=== PATIENT | female | born 1965 | race Caucasian/White ===

== ENCOUNTER 2024-12-04 08:25 | Observation (INO) ==
[2024-12-04] MEDS: KETAMINE HCL 10MG/ML SYR IV STA (08:41)
[2024-12-04 08:57] LABS: Basophils # (auto) 0.03 K/uL (0.00-0.20); Basophils % (auto) 0.4 %; Eosinophils % (auto) 1.4 %; Hemoglobin 12.3 g/dl (12.0-16.0); Immature Granulocytes # (auto) 0.02 K/uL (0.01-0.20); Immature Granulocytes % (auto) 0.3 %; Lymphocytes # (auto) 2.46 K/uL (1.20-3.40); Lymphocytes % (auto) 35.4 %; Mean Corpuscular Hemoglobin 29.7 pg (25.0-34.0); Mean Corpuscular Hgb Conc 33.2 g/dL (32.0-36.0); Mean Corpuscular Volume 89.4 fL (80.0-100.0); Mean Platelet Volume 9.9 fL (9.4-12.4); Monocytes # (auto) 0.66 K/uL (0.11-0.59); Monocytes % (auto) 9.5 %; Neutrophils # (auto) 3.67 K/uL (1.40-6.50); Platelet Count 347 K/uL (130-400); RDW Coefficient of Variation 13.6 % (11.5-14.5); RDW Standard Deviation 44.4 fL (36.4-46.3); Red Blood Count 4.14 M/uL (4.20-5.40); White Blood Count 6.94 K/ul (4.8-10.8)
[2024-12-04] MEDS: KETAMINE HCL INJ 50 MG/ML 10 ML VIAL ONE (08:57)
--- NOTE | 2024-12-04 09:06 | XRay Report ---
XR ankle RT min 3V routine CLINICAL HISTORY: fall, frx COMPARISON: None FINDINGS: Splint is present. There are acute mildly displaced fractures at the distal fibula and the medial malleolus of the distal tibia and at the posterior malleolus. There is minimal lateral sublux ation of the tibiotalar joint. IMPRESSION: Mildly displaced trimalleolar fracture. ACT 112: Negative or not required by law. Electronically signed by: Chadd Oscar M.D. 12/04/2024 9:04 AM
--- NOTE | 2024-12-04 09:06 | XRay Report ---
XR knee RT 1 or 2V routine CLINICAL HISTORY: fall COMPARISON: None FINDINGS: No fracture or dislocation. No significant degenerative change. IMPRESSION: No fracture seen. ACT 112: Negative or not required by law. Electronically signed by: Chadd Oscar M.D. 12/04/2024 9:05 AM
[2024-12-04 09:14] LABS: Albumin Globulin Ratio 1.2 (0.9-2); Albumin Level 4.1 gm/dl (3.4-5.0); BUN Creatinine Ratio 20.5 (10-20); Bilirubin,Total 0.5 mg/dl (0.2-1.0); Globulin 3.3 gm/dl (2.5-4.0); Total Protein 7.4 gm/dl (6.0-8.3)
[2024-12-04] MEDS: DIPHTHER/TETAN/PERTUS Vaccine (Tdap, Adol/Adult) 0.5mL IM ONE (09:18)
[2024-12-04] MEDS: ceFAZolin 2000MG 2,000 MG/15 ML SYR IV STA (09:22)
[2024-12-04 09:23] LABS: INR 0.9 (0.9-1.1); Prothrombin Time 10.3 Seconds (9.0-12.0)
--- NOTE | 2024-12-04 09:39 | Emergency Department Note ---
Impression & Plan Closed right ankle fracture, Fall ED Provider Note Provider: Estevan Chapman MD CHIEF COMPLAINT: Fall, right ankle pain HISTORY OF PRESENT ILLNESS: Patient is a 59-year-old female history of anxiety presenting here today the ambulance after slip and fall at work. Evidently slipped on some ice in the parking lot at work and fell today injuring her right ankle. Received 100 fentanyl prior to arrival. Significant pain here but able to feel and move her toes. Denies significant pain in the head neck or back. Denies loss of conscious. No chest pain or shortness of breath reported. No abdominal pain or nausea. Denies history of injury to this foot or leg before. No other injuries noted. PAST MEDICAL HISTORY: As noted above MEDICATIONS: Reviewed home medications SOCIAL HISTORY: PHYSICAL EXAM: GENERAL: alert and oriented in no acute distress on stretcher Head: normocephalic and atraumatic EYES: No injection, discharge or icterus. EOMI. NECK: Trachea midline. Supple with good range of motion. ENT: Mucous membranes pink and moist. LUNGS: Airway patent. No retractions. Breath sounds clear with good air entry bilaterally. HEART: Regular rate and rhythm. No chest wall tenderness ABDOMEN: Soft and non-tender, without guarding or rebound. Stable pelvis. SKIN: Acyanotic, warm, dry, without rashes EXTREMITIES: Without swelling, tenderness or deformity except for the right lower extremity which is surrounded and blanket towels and pillow. Removing this there is obvious posterior and lateral dislocation of the right foot to the lower leg. There is some skin tenting noted with an abrasion over the anterior ankle region but no open laceration or protruding bone. NEUROLOGICAL: No aphasia. No facial droop or slurred speech. Normal strength and tone in the extremities other than limitations of the right lower leg and ankle/foot secondary to pain and splint. Sensation to gross touch normal including intact sensation of the right toes. CONTINUOUS CARDIAC MONITORING: was ordered and showed a heart rate of 60s-80s bpm in NSR Patient's laboratory studies and imaging reviewed. Differential includes Fracture, dislocation, contusion, intra-abdominal, pneumothorax, intrathoracic, intracranial, neurologic, compartment syndrome, rhabdomyolysis, as well as other pathologies. IMPRESSION/MEDICAL DECISION MAKING: Patient on arrival with an obvious fracture dislocation of the right ankle. ATLS survey primary and secondary completed. Some tenting skin and a small abrasion present. Cleaned with chlorhexidine. Tetanus updated. Given some ketamine to affect quick emergent closed reduction given the concern with the joint and tenting skin. Neurovascular intact prior. Patient was agreeable with this verbal consent. Performed as below without any significant complications. CO2 and close cardiac monitoring. Patient's right lower extremity was splinted and x-ray obtained. Did reach out to orthopedics on-call. She is more like an abrasion than true open fracture but did empirically cover with a dose of Ancef once confirming her allergy profile with her. Patient without evidence of other significant trauma. Awake alert without head pain or neurological deficit. Doubt a head injury/intracranial hemorrhage, cervical spine injury. No injury to the other extremities noted. Neurovascular intact to the right foot afterwards. Discussed with Dr. Glaser of orthopedics. Sent electronically a picture of the area prior to reduction showing the abrasion as well as a as well a picture of the post reduction x-ray. Ankle mortise still just a little bit malaligned but much improved. Again I do not believe this is an open fracture. As it be covered with a splint we will put on a course of antibiotics however. Discussed with the patient. Her pain is improved some but now with movement is worse. She does not feel she will be able go home on crutches and function at all. Has had some IV morphine in addition to prior pain medicine. Given her ambulatory dysfunction and concerns, discussed with the hospitalist for further care here. DIAGNOSIS: Fall, right trimalleolar fracture DISPOSITION: Evaluated by the hospitalist for further care Given her poor pain control and ambulatory dysfunction. Patient was agreeable with this plan. ED procedure: Closed reduction right ankle Indication: Right ankle trimalleolar fracture dislocation Performed by self with the patient's verbal consent. Given some ketamine for pain and anxiolysis. Close cardiac and end-tidal monitoring with nursing at bedside. Performed quick close reduction with evidence of abrasion and tenting of skin in hopes to provide prevent joint damage or lower risk of infection. Patient did well with this and simple traction countertraction affected good reduction. Splint placed. Neurovascular intact afterwards. PROCEDURE: splint placement Indications for procedure: Right trimalleolar ankle fracture Description of the procedure: orthoglass splint posterior with stirrup short was placed on the patient's right lower leg. Abrasion over the ankle was cleaned with chlorhexidine and Xeroform was placed in addition to copious padding. Neurovascular status was intact after placement of the splint. PATIENT CONDITION AFTER PROCEDURE: good Past Med/Surg History Problem List (Updated 12/04/24 @ 13:51 by Estevan Chapman M.D.) Fall (Acute) Closed right ankle fracture (Acute) Allergic reaction (Acute) Allergic reaction (Acute) Social History Smoking Status: Never smoker Preferred Language: Hebrew Feels Safe at Home: Yes Allergies Allergies Allergy/AdvReac Type Severity Reaction Status Date / Time amoxicillin Allergy Rash Verified 12/04/24 09:08 Penicillins Allergy Rash Verified 12/04/24 09:08 Home Meds Home Medications Medication Instructions Recorded Confirmed duloxetine 30 mg capsule,delayed 30 mg PO DAILY 12/04/24 12/04/24 release lisinopril 10 mg tablet 10 mg PO DAILY 12/04/24 12/04/24 Results & Data (ED) Vital Signs Vital Signs - 24 hr 12/04/24 08:33 12/04/24 08:33 12/04/24 08:33 Temperature 36.7 C 36.7 C 36.7 C Temperature Source Oral Oral Pulse Rate 79 79 Pulse Rate [Right Finger] 79 Pulse Rate from SpO2 Sensor Pulse Rhythm Regular Pulse Rhythm [Right Finger] Regular Pulse Strength Normal Pulse Strength [Right Finger] Normal Respiratory Rate 16 16 16 Respiratory Effort / Characteristics Non-Labored Spontaneous Non-Labored Spontaneous Respiratory Depth Normal Normal Respiratory Pattern Regular Regular Blood Pressure 147/88 H 147/88 H Blood Pressure [Right Arm] 147/88 H Blood Pressure Mean 107 Blood Pressure Mean [Right Arm] 107 Blood Pressure Position Sitting Blood Pressure Position [Right Arm] Lying Pulse Oximetry 99 98 98 Oxygen Delivery Method Room Air Room Air Room Air Oxygen Flow Rate 0 Sepsis Recent Fever Within 48 Hours No Sepsis New/Unexplained Change in Mental Status N/A Sepsis Action Taken by Nursing No Action Required End-Tidal CO2 12/04/24 08:35 12/04/24 08:45 12/04/24 08:48 Temperature Temperature Source Pulse Rate 67 69 83 Pulse Rate [Right Finger] Pulse Rate from SpO2 Sensor 67 83 Pulse Rhythm Pulse Rhythm [Right Finger] Pulse Strength Pulse Strength [Right Finger] Respiratory Rate 5 L 7 L Respiratory Effort / Characteristics Respiratory Depth Respiratory Pattern Blood Pressure 143/95 H 154/93 H Blood Pressure [Right Arm] Blood Pressure Mean 111 113 Blood Pressure Mean [Right Arm] Blood Pressure Position Blood Pressure Position [Right Arm] Pulse Oximetry 100 99 Oxygen Delivery Method Room Air Oxygen Flow Rate Sepsis Recent Fever Within 48 Hours Sepsis New/Unexplained Change in Mental Status Sepsis Action Taken by Nursing End-Tidal CO2 36 38 12/04/24 08:50 12/04/24 08:55 12/04/24 09:00 Temperature Temperature Source Pulse Rate 72 65 68 Pulse Rate [Right Finger] Pulse Rate from SpO2 Sensor Pulse Rhythm Pulse Rhythm [Right Finger] Pulse Strength Pulse Strength [Right Finger] Respiratory Rate 12 16 16 Respiratory Effort / Characteristics Respiratory Depth Respiratory Pattern Blood Pressure 162/98 H 177/96 H 157/102 H Blood Pressure [Right Arm] Blood Pressure Mean 100 125 113 Blood Pressure Mean [Right Arm] Blood Pressure Position Blood Pressure Position [Right Arm] Pulse Oximetry 100 100 100 Oxygen Delivery Method Room Air Room Air Oxygen Flow Rate Sepsis Recent Fever Within 48 Hours Sepsis New/Unexplained Change in Mental Status Sepsis Action Taken by Nursing End-Tidal CO2 43 36 38 12/04/24 09:07 12/04/24 09:15 12/04/24 09:21 Temperature Temperature Source Pulse Rate 63 65 Pulse Rate [Right Finger] 61 Pulse Rate from SpO2 Sensor 63 65 Pulse Rhythm Pulse Rhythm [Right Finger] Pulse Strength Pulse Strength [Right Finger] Respiratory Rate 12 16 22 Respiratory Effort / Characteristics Non-Labored Spontaneous Respiratory Depth Normal Respiratory Pattern Regular Blood Pressure 159/97 H 159/90 H Blood Pressure [Right Arm] 169/122 H Blood Pressure Mean 117 113 Blood Pressure Mean [Right Arm] 137 Blood Pressure Position Blood Pressure Position [Right Arm] Lying Pulse Oximetry 100 100 100 Oxygen Delivery Method Room Air Room Air Room Air Oxygen Flow Rate Sepsis Recent Fever Within 48 Hours Sepsis New/Unexplained Change in Mental Status Sepsis Action Taken by Nursing End-Tidal CO2 38 44 38 12/04/24 09:36 12/04/24 09:40 12/04/24 09:57 Temperature Temperature Source Pulse Rate 71 Pulse Rate [Right Finger] Pulse Rate from SpO2 Sensor 70 Pulse Rhythm Pulse Rhythm [Right Finger] Pulse Strength Pulse Strength [Right Finger] Respiratory Rate 13 Respiratory Effort / Characteristics Respiratory Depth Respiratory Pattern Blood Pressure 147/105 H 161/90 H 144/91 H Blood Pressure [Right Arm] Blood Pressure Mean 128 108 108 Blood Pressure Mean [Right Arm] Blood Pressure Position Blood Pressure Position [Right Arm] Pulse Oximetry 100 Oxygen Delivery Method Oxygen Flow Rate Sepsis Recent Fever Within 48 Hours Sepsis New/Unexplained Change in Mental Status Sepsis Action Taken by Nursing End-Tidal CO2 41 12/04/24 10:00 12/04/24 10:04 12/04/24 11:00 Temperature Temperature Source Pulse Rate 65 60 Pulse Rate [Right Finger] 65 Pulse Rate from SpO2 Sensor 67 Pulse Rhythm Pulse Rhythm [Right Finger] Pulse Strength Pulse Strength [Right Finger] Respiratory Rate 14 16 18 Respiratory Effort / Characteristics Non-Labored Spontaneous Respiratory Depth Normal Respiratory Pattern Blood Pressure 153/109 H 127/89 Blood Pressure [Right Arm] 145/86 H Blood Pressure Mean 123 102 Blood Pressure Mean [Right Arm] 105 Blood Pressure Position Blood Pressure Position [Right Arm] Lying Pulse Oximetry 100 98 96 Oxygen Delivery Method Room Air Room Air Room Air Oxygen Flow Rate Sepsis Recent Fever Within 48 Hours Sepsis New/Unexplained Change in Mental Status Sepsis Action Taken by Nursing End-Tidal CO2 40 12/04/24 12:00 12/04/24 12:34 12/04/24 13:00 Temperature Temperature Source Pulse Rate 64 Pulse Rate [Right Finger] 60 62 Pulse Rate from SpO2 Sensor Pulse Rhythm Pulse Rhythm [Right Finger] Pulse Strength Pulse Strength [Right Finger] Respiratory Rate 18 18 Respiratory Effort / Characteristics Non-Labored Spontaneous Non-Labored Spontaneous Respiratory Depth Normal Normal Respiratory Pattern Blood Pressure Blood Pressure [Right Arm] 125/90 147/91 H Blood Pressure Mean Blood Pressure Mean [Right Arm] 101 109 Blood Pressure Position Blood Pressure Position [Right Arm] Lying Lying Pulse Oximetry 97 97 Oxygen Delivery Method Room Air Room Air Oxygen Flow Rate Sepsis Recent Fever Within 48 Hours Sepsis New/Unexplained Change in Mental Status Sepsis Action Taken by Nursing End-Tidal CO2 12/04/24 13:42 Temperature Temperature Source Pulse Rate Pulse Rate [Right Finger] 62 Pulse Rate from SpO2 Sensor Pulse Rhythm Pulse Rhythm [Right Finger] Pulse Strength Pulse Strength [Right Finger] Respiratory Rate 18 Respiratory Effort / Characteristics Respiratory Depth Respiratory Pattern Blood Pressure Blood Pressure [Right Arm] 112/89 Blood Pressure Mean Blood Pressure Mean [Right Arm] 96 Blood Pressure Position Blood Pressure Position [Right Arm] Pulse Oximetry 94 Oxygen Delivery Method Room Air Oxygen Flow Rate Sepsis Recent Fever Within 48 Hours Sepsis New/Unexplained Change in Mental Status Sepsis Action Taken by Nursing End-Tidal CO2 Laboratory Data 12/04/24 08:36 12/04/24 08:36 Lab Results 12/04/24 Range/Units 08:36 WBC 6.94 (4.8-10.8) K/ul RBC 4.14 L (4.20-5.40) M/uL Hgb 12.3 (12.0-16.0) g/dl Hct 37.0 (37.0-47.0) % MCV 89.4 (80.0-100.0) fL MCH 29.7 (25.0-34.0) pg MCHC 33.2 (32.0-36.0) g/dL RDW Std Deviation 44.4 (36.4-46.3) fL RDW Coeff of Ritchie 13.6 (11.5-14.5) % Plt Count 347 (130-400) K/uL MPV 9.9 (9.4-12.4) fL Immature Gran % (Auto) 0.3 % Neut % (Auto) 53.0 % Lymph % (Auto) 35.4 % [place] % (Auto) 9.5 % Eos % (Auto) 1.4 % Baso % (Auto) 0.4 % Neut # (Auto) 3.67 (1.40-6.50) K/uL Lymph # (Auto) 2.46 (1.20-3.40) K/uL [place] # (Auto) 0.66 H (0.11-0.59) K/uL Eos # (Auto) 0.10 (0.00-0.50) K/uL Baso # (Auto) 0.03 (0.00-0.20) K/uL Immature Gran # (Auto) 0.02 (0.01-0.20) K/uL PT 10.3 (9.0-12.0) Seconds INR 0.9 (0.9-1.1) Sodium 139 (136-145) mmol/L Potassium 4.0 (3.5-5.1) mmol/L Chloride 107 (98-107) mmol/L Carbon Dioxide 27 (21-32) mmol/L Anion Gap 5 (3-11) BUN 16 (6-23) mg/dl Creatinine 0.78 (0.6-1.2) mg/dl Est Cr Clr Drug Dosing 70.0 ml/min eGFR 86.90 BUN/Creatinine Ratio 20.5 H (10-20) Glucose 90 (70-99(Fasting)) mg/dl Calcium 9.0 (8.6-10.3) mg/dl Total Bilirubin 0.5 (0.2-1.0) mg/dl AST 21 (13-39) U/L ALT 14 (7-52) U/L Alkaline Phosphatase 63 (34-104) U/L Total Protein 7.4 (6.0-8.3) gm/dl Albumin 4.1 (3.4-5.0) gm/dl Globulin 3.3 (2.5-4.0) gm/dl Albumin/Globulin Ratio 1.2 (0.9-2) Administered Medications Discontinued Medications Diphtheria/Pertussis/Tetanus Vacc (Diphther/Tetan/Pertus Vaccine (Tdap, Adol/Adult) 0.5ml) 0.5 ml IM .ONCE ONE Stop: 12/04/24 08:37 Last Admin: 12/04/24 09:18 Dose: 0.5 ml Documented By: [facility] Cefazolin Sodium (Ancef 2000mg) 2,000 mg in 15 mls @ 3.75 mls/min IV NOW STA Stop: 12/04/24 09:18 Last Admin: 12/04/24 09:22 Dose: 3.75 mls/min Documented By: [facility] Ketamine HCl (Ketamine Hcl 10mg/Ml Syr) 30 mg IV NOW STA Stop: 12/04/24 08:34 Last Admin: 12/04/24 08:41 Dose: 30 mg Documented By: [id number] Ketamine HCl (Ketamine Hcl Inj 50 Mg/Ml 10 Ml Vial) Confirm Administered Dose 50 mg .ROUTE .STK-MED ONE Stop: 12/04/24 08:34 Last Admin: 12/04/24 08:57 Dose: Not Given Documented By: [facility] Morphine Sulfate (Morphine Sulfate 2 Mg/Ml Carp) 2 mg IV NOW STA Stop: 12/04/24 10:34 Last Admin: 12/04/24 10:40 Dose: 2 mg Documented By: [facility] Morphine Sulfate (Morphine Sulfate 2 Mg/Ml Carp) 2 mg IV NOW STA Stop: 12/04/24 11:37 Last Admin: 12/04/24 13:03 Dose: 2 mg Documented By: ESTELITA Imaging Data Radiologist's Impression: Ankle X-Ray 12/04/24 08:33 XR ankle RT min 3V routine CLINICAL HISTORY: fall, frx COMPARISON: None FINDINGS: Splint is present. There are acute mildly displaced fractures at the distal fibula and the medial malleolus of the distal tibia and at the posterior malleolus. There is minimal lateral subluxation of the tibiotalar joint. IMPRESSION: Mildly displaced trimalleolar fracture. ACT 112: Negative or not required by law. Electronically signed by: Chadd Oscar M.D. 12/04/2024 9:04 AM Knee X-Ray 12/04/24 08:33 XR knee RT 1 or 2V routine CLINICAL HISTORY: fall COMPARISON: None FINDINGS: No fracture or dislocation. No significant degenerative change. IMPRESSION: No fracture seen. ACT 112: Negative or not required by law. Electronically signed by: Chadd Oscar M.D. 12/04/2024 9:05 AM Discharge Plan Visit Data Chief Complaint: Trauma Stated Complaint: FALL, OPEN LEG FX ED Provider: Estevan Chapman Discharge Problem: Closed right ankle fracture, Fall Patient Disposition: Being Evaluated by Hospitalist Forms Stand Alone Forms: [facility] Prescriptions Prescriptions: No Action lisinopril 10 mg tablet 10 mg PO DAILY duloxetine 30 mg capsule,delayed release(DR/EC) 30 mg PO DAILY Referrals Referrals: Sugey Blanton PA-C [Primary Care Provider] - Discharge Problem: Closed right ankle fracture Qualifiers: Encounter type: initial encounter Qualified Code(s): S82.891A - Other fracture of right lower leg, initial encounter for closed fracture
[2024-12-04] MEDS: MoRPHine SULFATE 2 MG/ML CARP IV STA ×2 (10:40→13:03)
[2024-12-04] MEDS ORDERED: MoRPHine SULFATE 2 MG/ML CARP IV PRN (12:03)
[2024-12-04] MEDS ORDERED: ACETAMINOPHEN 325 MG TAB PO PRN (12:05)
[2024-12-04] MEDS ORDERED: MAGNESIUM HYDROXIDE SUSP 30 ML UDC PO PRN (12:05)
[2024-12-04] MEDS ORDERED: POLYETHYLENE (MIRALAX) 17 GM PACK PO PRN (12:05)
--- NOTE | 2024-12-04 12:21 | History & Physical Report ---
Date of Service December 04, 2024 Assessment & Plan (1) Closed right ankle fracture: Plan Mechanical fall Right ankle fracture Right ankle x-ray:Mildly displaced trimalleolar fracture. Per discussion with ED physician, patient had abrasion over the anterior ankle, patient currently w/ RLE splint at bedside exam. Will continue with IV antibiotic, consult orthopedics, pain management and bowel regimen. Chemo DVT prophylaxis on hold for possible surgical intervention. Pt is at mild-mod cardiovascular risk for much orthopedic repair. Other chronic condition: HTN - c/w home meds. DVT Px: SCD to LLE. Full code. History of Present Illness Chief Complaint: fall Primary Care Provider: Sugey Blanton 59-year-old lady with PMH of HTN presented to the ED after a fall. Patient reports she slipped on black ice in parking lot and fell, denies head trauma/loss of consciousness/palpitation or nausea or vomiting prior to fall. Patient denies fever/sore throat/cough/chest pain/pain and burning while passing urine/acute changes in bowel habits. Patient denies history of T2DM, blood clot, cancer, SD, stent placement, stroke. Patient denies tobacco use, reports occasional alcohol use up to a few times a month, denies recreational drug use. Medications reviewed with the patient at bedside. Full code Plan of care discussed with the patient and her at bedside who voiced understanding and were agreeable. Allergies Allergy/AdvReac Type Severity Reaction Status Date / Time amoxicillin Allergy Rash Verified 12/04/24 09:08 Penicillins Allergy Rash Verified 12/04/24 09:08 Home Medications Medication Instructions Recorded Confirmed Type duloxetine 30 mg capsule,delayed 30 mg PO DAILY 12/04/24 12/04/24 History release lisinopril 10 mg tablet 10 mg PO DAILY 12/04/24 12/04/24 History Past Med/Surg History Problem List (Updated 12/04/24 @ 12:21 by Emily Bliss MD) Closed right ankle fracture Allergic reaction (Acute) Allergic reaction (Acute) Social History Smoking Status: Never smoker Preferred Language: Eritrean Feels Safe at Home: Yes Review of Systems Review of Systems: Negative otherwise mentioned in HPI. Physical Exam Physical Exam: GENERAL: Alert and oriented x3. NAD, on RA. HEENT: No pallor, no icterus. Pupils equal, round and reactive to light. Oral mucosa moist. NECK: No JVD, no neck masses. HEART: S1 and S2 heard. Regular rate and rhythm. No murmur, no gallop. RESPIRATORY SYSTEM: Normal AP diameter. No accessory muscle use. No wheezing, no crackles. ABDOMEN: Soft, bowel sounds present, nontender, no distention. CENTRAL NERVOUS SYSTEM: No facial droop. Speech is clear. Obeys simple commands. Moves extremities. EXTREMITIES: LLE: No edema, no erythema seen.; RLE in splint, distal neurovascular status wnl. Results & Data Results & Data Vital Signs (Past 12 Hours) Vital Signs Temp Pulse Pulse Resp BP BP Pulse Ox 12/04/24 12:00 60 18 125/90 97 12/04/24 11:00 65 18 145/86 H 96 12/04/24 10:04 60 16 127/89 98 12/04/24 10:00 65 14 153/109 H 100 12/04/24 09:57 71 13 144/91 H 100 12/04/24 09:40 161/90 H 12/04/24 09:36 147/105 H 12/04/24 09:21 65 22 159/90 H 100 12/04/24 09:15 63 16 159/97 H 100 12/04/24 09:07 61 12 169/122 H 100 12/04/24 09:00 68 16 157/102 H 100 12/04/24 08:55 65 16 177/96 H 100 12/04/24 08:50 72 12 162/98 H 100 12/04/24 08:48 83 7 L 154/93 H 99 12/04/24 08:45 69 5 L 143/95 H 100 12/04/24 08:35 67 12/04/24 08:33 36.7 C 79 16 147/88 H 98 12/04/24 08:33 36.7 C 79 16 147/88 H 98 12/04/24 08:33 36.7 C 79 16 147/88 H 99 O2 Del Method O2 Flow Rate 12/04/24 12:00 Room Air 12/04/24 11:00 Room Air 12/04/24 10:04 Room Air 12/04/24 10:00 Room Air 12/04/24 09:57 12/04/24 09:40 12/04/24 09:36 12/04/24 09:21 Room Air 12/04/24 09:15 Room Air 12/04/24 09:07 Room Air 12/04/24 09:00 12/04/24 08:55 Room Air 12/04/24 08:50 Room Air 12/04/24 08:48 Room Air 12/04/24 08:45 12/04/24 08:35 12/04/24 08:33 Room Air 12/04/24 08:33 Room Air 0 12/04/24 08:33 Room Air
[2024-12-04] MEDS: HYDROmorphone INJ 1 MG/ML SYRINGE IV PRN (14:51)
[2024-12-04] MEDS: oxyCODONE HCL IR 5 MG TAB (IMMEDIATE RELEASE) PO PRN (17:16)
[2024-12-04] MEDS: ceFAZolin 2000MG 2,000 MG/15 ML SYR IV SCH (17:16)
[2024-12-04] MEDS: ONDANSETRON INJ 2 MG/ML 2 ML VIAL IV PRN (17:19)
--- NOTE | 2024-12-04 17:29 | Orthopedic Consultation ---
Date of Service December 04, 2024 Assessment & Plan (1) Fracture dislocation of right ankle: Case was discussed with Dr. Chapman. He felt the injury was closed but there is a high-grade partial-thickness wound over the medial malleolus. It was relieved by reduction and well-dressed. He did cover with additional antibiotics. I reviewed the diagnosis, prognosis and treatment options with the patient Imani at her bedside. She is admitted for pain control and strict elevation. I explained these are best treated by surgery. Surgery should happen tomorrow before swelling ensues. For that reason, I will ask Dr. Hernandez to take over care for timely fracture management. I asked her the nurses to strictly elevate this lower extremity overnight. She will be n.p.o. at midnight. Surgery likely tomorrow afternoon. Will continue antibiotic prophylaxis History of Present Illness Reason for Consultation: Right ankle fracture dislocation Requesting Physician: . 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 She was brought to the [facility] emergency room with an ankle fracture dislocation. She was closed reduced by the ER staff. She had some abrasive wound development on the medial malleolus which was treated with cleansing and dressing. She was treated in case with IV antibiotics for the wound. She was indicated for outpatient management but she had too much pain and ambulatory dysfunction to go home. She was admitted for further management. She denies previous foot or ankle issues. Denies any numbness or tingling. Wants to return to an active lifestyle occluding fitness Allergies Allergy/AdvReac Type Severity Reaction Status Date / Time amoxicillin Allergy Rash Verified 12/04/24 09:08 Penicillins Allergy Rash Verified 12/04/24 09:08 Home Medications Medication Instructions Recorded Confirmed Type duloxetine 30 mg capsule,delayed 30 mg PO DAILY 12/04/24 12/04/24 History release lisinopril 10 mg tablet 10 mg PO DAILY 12/04/24 12/04/24 History Past Med/Surg History Problem List (Updated 12/04/24 @ 17:27 by Sergio Glaser MD) Fracture dislocation of right ankle Fall (Acute) Closed right ankle fracture (Acute) Allergic reaction (Acute) Allergic reaction (Acute) Social History Smoking Status: Never smoker Hx Alcohol Use: Yes Alcohol type: beer, wine and hard liquor Hx Substance Use: No Preferred Language: Mohawk Communication Ability: Effective Head Char Filter Tank Tender Required: No Beliefs That Will Affect Care: None Current Living Situation: Spouse and Family Other Information That Helps Us Care for You: No Feels Safe at Home: Yes Safety Concerns: Feels Safe At This Time Review of Systems All systems reviewed & are unremarkable except as noted in HPI & below. Physical Exam Right lower extremity: Well-fitted splint. Able to move her toes. DNVI. The limb was then elevated with nursing staff. Constitutional WD/WN, vitals as above no acute distress and not intoxicated appearing Respiratory normal respiratory effort; no labored breathing Cardiovascular Extremities: normal capillary refill Results & Data Results & Data Laboratory Results H & H 12/04/24 Range/Units 08:36 Hgb 12.3 (12.0-16.0) g/dl Hct 37.0 (37.0-47.0) % Coagulation 12/04/24 Range/Units 08:36 INR 0.9 (0.9-1.1) Diagnostic Findings Radiographs of the right ankle demonstrate acceptable close reduction. There is a comminuted fibular diaphysis fracture and an oblique medial malleolus fracture. There is a posterior malleolus fragment less than 10 to 15% of the width PG Care Time/CCT Total # of Minutes Spent Total Time Spent with Patient: Total time spent is greater than 50% in coordination of care (as documented) at patient's floor/unit and/or counseling patient: Coding Level of Care Code 70906 IN/OBS CONSULT LVL 4,60M (57 - DECISION FOR SURGERY) Diagnoses Closed fracture dislocation of right ankle, initial encounter S82.891A Encounter type: initial encounter Fracture type: closed (1) Fracture dislocation of right ankle Encounter type: initial encounter Fracture type: closed Qualified Code(s): S82.891A - Other fracture of right lower leg, initial encounter for closed fracture
[2024-12-05] MEDS ORDERED: BUPIVACAINE 0.5 % 5 MG/1 ML MPF 30ML VIAL ONE (07:14)
[2024-12-05] MEDS ORDERED: BUPIVACAINE 0.5 % 5 MG/1 ML PF 10ML VIAL ONE (07:15)
[2024-12-05 07:39] LABS: Hematocrit (blood only) 33.6 % (37.0-47.0); Hemoglobin 11.1 g/dl (12.0-16.0); Mean Corpuscular Hemoglobin 29.7 pg (25.0-34.0); Mean Corpuscular Volume 89.8 fL (80.0-100.0); Mean Platelet Volume 10.3 fL (9.4-12.4); Platelet Count 299 K/uL (130-400); RDW Coefficient of Variation 13.7 % (11.5-14.5); RDW Standard Deviation 44.6 fL (36.4-46.3); Red Blood Count 3.74 M/uL (4.20-5.40); White Blood Count 8.39 K/ul (4.8-10.8)
[2024-12-05 08:02] LABS: BUN Creatinine Ratio 21.3 (10-20); Calcium 8.6 mg/dl (8.6-10.3); Creatinine Clr Calc Pharmacy 89.6 ml/min; Magnesium 1.8 mg/dl (1.7-2.4); Phosphorus 3.8 mg/dl (2.5-4.9); Potassium 3.9 mmol/L (3.5-5.1)
--- NOTE | 2024-12-05 08:10 | Hospitalist Progress Note ---
Date of Service December 05, 2024 Assessment & Plan (1) Fall: (2) Fracture dislocation of right ankle: (3) HTN (hypertension): Plan This is a 59yo F wih PMH of HTN presented to the ED after a mechanical fall and found to have a mildly displaced R trimalleolar fracture. Mechanical fall Right ankle fracture Right ankle x-ray: Mildly displaced trimalleolar fracture. POD#0 s/p Right Ankle Open Reduction Internal Fixation bimalleolar ankle fracture (Right) - Charlie Hernandez, DO Per ortho for wound care, anticoagulation and activities Monitor H&H (pre-op hgb 11.1, EBL 10ml), continue incentive spirometry, PT/OT when appropriate HTN Normotensive Continue home lisinopril DVT Ppx: aspirin 81mg BID per ortho Code status: FULL PCP: JORY Blanton Dispo: admitted on med/surg I spent a total of 45 minutes coordinating, documenting, and providing care for this patient excluding time spent in the performance of separately billed services or time spent by another provider/QHP. Admission and Anticipated Discharge Date Admission Date: December 04, 2024 Subjective Seen and examined in 375-2. Had a headache this morning but better after pain medication. Denies any ankle pain at this time. No other acute events overnight. Awaiting OR midmorning. No fever, chills, chest pain shortness of breath, nausea, vomiting, abdominal pain, dysuria, diarrhea or constipation. Review of Systems Review of Systems: At least ten systems reviewed and negative except as noted in the HPI. Physical Exam Physical Exam: Gen: WD/WN, NAD, resting in bed, A&Ox3 HEENT: Normocephalic, atraumatic, conjunctivae moist, sclerae anicteric, mucous membranes moist Lung: Clear to Auscultation bilaterally, no wheezes/rales/rhonchi Heart: Regular rate, regular rhythm, no murmurs, rubs, or gallops Abdomen: Soft, NT, ND +BS x 4 Extremities: RLE ankle dressing c/d/i. No edema Skin: Warm, no rash Results & Data Results & Data Vital Signs (Past 12 Hours) Vital Signs Temp Pulse Resp BP BP Pulse Ox O2 Del Method 12/05/24 07:29 36.6 C 78 16 112/73 93 Room Air 12/04/24 23:09 36.5 C 70 16 129/83 98 Room Air 12/04/24 21:00 36.7 C 66 17 129/81 97 Room Air Laboratory Results Short CBC 12/05/24 Range/Units 07:01 WBC 8.39 (4.8-10.8) K/ul Hgb 11.1 L (12.0-16.0) g/dl Hct 33.6 L (37.0-47.0) % Plt Count 299 (130-400) K/uL BMP 12/05/24 07:01 Sodium 134 L Potassium 3.9 Chloride 103 Carbon Dioxide 26 BUN 13 Creatinine 0.61 Glucose 109 H Calcium 8.6 Diagnostic Findings Ankle X-Ray 12/04/24 08:33 XR ankle RT min 3V routine CLINICAL HISTORY: fall, frx COMPARISON: None FINDINGS: Splint is present. There are acute mildly displaced fractures at the distal fibula and the medial malleolus of the distal tibia and at the posterior malleolus. There is minimal lateral subluxation of the tibiotalar joint. IMPRESSION: Mildly displaced trimalleolar fracture. ACT 112: Negative or not required by law. Electronically signed by: Chadd Oscar M.D. 12/04/2024 9:04 AM Knee X-Ray 12/04/24 08:33 XR knee RT 1 or 2V routine CLINICAL HISTORY: fall COMPARISON: None FINDINGS: No fracture or dislocation. No significant degenerative change. IMPRESSION: No fracture seen. ACT 112: Negative or not required by law. Electronically signed by: Chadd Oscar M.D. 12/04/2024 9:05 AM Ankle X-Ray 12/05/24 00:00 FL ankle RT 2V CLINICAL HISTORY: RT ANKLE ORIF COMPARISON STUDY: None FLUOROSCOPY TIME: 41 seconds FLUOROSCOPY IMAGES: 2 EXPOSURE DOSE: 0.85 mGy FINDINGS: Fluoroscopy was provided for internal fixation of the right ankle. IMPRESSION: Intraoperative fluoroscopy. ACT 112: Negative or not required by law. Electronically signed by: Chadd Oscar M.D. 12/05/2024 1:22 PM (2) Fracture dislocation of right ankle Encounter type: initial encounter Fracture type: closed Qualified Code(s): S82.891A - Other fracture of right lower leg, initial encounter for closed fracture
[2024-12-05] MEDS ORDERED: PROPOFOL IV EMULSION 10 MG/ML 20 ML VIAL IV ONE (09:25)
[2024-12-05] MEDS ORDERED: KETOROLAC 30 MG/ML VIAL ONE (09:25)
[2024-12-05] MEDS ORDERED: ONDANSETRON INJ 2 MG/ML 2 ML VIAL ONE (09:25)
[2024-12-05] MEDS ORDERED: LIDOCAINE 2% 2 ML VIAL/AMP(20MG/ML) INFIL ONE (09:25)
[2024-12-05] MEDS ORDERED: DEXAMETHASONE SOD INJ 4 MG/ML VIAL ONE (09:25)
[2024-12-05] MEDS ORDERED: GLYCOPYRROLATE 0.2 MG/ML VIAL ONE (09:25)
[2024-12-05] MEDS ORDERED: fentaNYL citrate PF 100 MCG/2 ML VIAL ONE (09:26)
[2024-12-05] MEDS ORDERED: KETAMINE HCL 10MG/ML SYR ONE (09:26)
[2024-12-05] MEDS ORDERED: MIDAZOLAM HCL 1 MG/ML 2ML VIAL ONE (09:26)
[2024-12-05] MEDS ORDERED: PHENYLEPHRINE 100MCG/ML 5ML SYR ONE (09:29)
[2024-12-05] MEDS ORDERED: ePHEDrine sulfate 50 MG/ML AMP ONE (09:29)
--- NOTE | 2024-12-05 10:14 | History & Physical Bridge Note ---
Date of Service December 05, 2024 History & Physical Bridge Note I have examined the patient, reviewed the History & Physical and in the interval since the performance of the History & Physical I have noted the following changes of clinical significance: no changes noted
--- NOTE | 2024-12-05 10:52 | Anesthesiology Consultation ---
Date of Service December 05, 2024 Assessment & Plan Chart Review Chart Review: Acceptable Risk for Surgery Consults Requested none History Surgery Operation Date: 12/05/24 11:30 Proposed Procedures p Right Ankle Open Reduction Internal Fixation - Charlie Hernandez DO Height/Weight Height: 5 ft 1 in Weight: 72.9 kg Allergies Allergy/AdvReac Type Severity Reaction Status Date / Time amoxicillin Allergy Rash Verified 12/04/24 09:08 Penicillins Allergy Rash Verified 12/04/24 09:08 Medications Home Medications Medication Instructions Recorded Confirmed Last Taken duloxetine 30 mg capsule,delayed 30 mg PO DAILY 12/04/24 12/04/24 Unknown release lisinopril 10 mg tablet 10 mg PO DAILY 12/04/24 12/04/24 Unknown Active Medications Generic Name Dose Route Start Last Admin Trade Name Freq PRN Reason Stop Dose Admin Hydromorphone HCl 1 mg 12/04/24 12:27 12/05/24 08:14 Hydromorphone Inj 1 Mg/Ml Syringe IV 12/18/24 12:26 1 mg Q4H PRN Administration Severe Pain (Scale 7, 8, 9,10) Cefazolin Sodium 2,000 mg in 15 mls @ 3.75 mls/min 12/04/24 17:00 12/05/24 08:14 Ancef 2000mg IV 12/06/24 16:59 3.75 mls/min Q8H ALFREDITO Administration Ondansetron HCl 4 mg 12/04/24 12:05 12/04/24 17:19 Ondansetron Inj 2 Mg/Ml 2 Ml Vial IV 01/03/25 12:04 4 mg Q6H PRN Administration Nausea Oxycodone HCl 5 mg 12/04/24 12:03 12/04/24 21:52 Oxycodone Hcl Ir 5 Mg Tab (Immediate Release) PO 12/18/24 12:02 5 mg Q4H PRN Administration Moderate Pain (Scale 4, 5, 6) NPO Date Last Intake of Fluids: 12/04/24 Time Last Intake of Fluids: 23:59 Date Last Intake of Solids: 12/04/24 Time Last Intake of Solids: 19:00 Social History Smoking Status: Never smoker Hx Alcohol Use: Yes Alcohol type: beer, wine and hard liquor alcohol intake frequency: a few times a month Hx Substance Use: No Physical Exam Vital Signs Last Vital Signs Temp 36.6 C 12/05/24 07:29 Pulse 78 12/05/24 07:29 Resp 16 12/05/24 07:29 BP 112/73 12/05/24 07:29 Pulse Ox 93 12/05/24 07:29 O2 Del Method Room Air 12/05/24 07:29 O2 Flow Rate 0 12/04/24 08:33 Testing Laboratory Results 12/05/24 07:01 12/05/24 07:01 PT 10.3 Seconds (9.0-12.0) 12/04/24 08:36 INR 0.9 (0.9-1.1) 12/04/24 08:36
[2024-12-05] MEDS ORDERED: fentaNYL citrate PF 100 MCG/2 ML VIAL IV PRN ×2 (10:53→11:04)
[2024-12-05] MEDS ORDERED: PROMETHAZINE HCL 6.25 MG in SODIUM CHLORIDE 0.9% 50 ML IV PRN ×2 (10:53→11:04)
[2024-12-05] MEDS ORDERED: ATROPINE SULFATE 0.1 MG/ML 10ML SYR IV PRN ×2 (10:53→11:04)
[2024-12-05] MEDS ORDERED: ONDANSETRON INJ 2 MG/ML 2 ML VIAL IV PRN ×3 (10:53→14:07)
[2024-12-05] MEDS ORDERED: HYDROmorphone INJ 2 MG/ML SYR/VIAL IV PRN ×2 (10:53→11:04)
[2024-12-05] MEDS ORDERED: ePHEDrine sulfate 50 MG/ML AMP IV PRN ×2 (10:53→11:04)
[2024-12-05] MEDS: LACTATED RINGER'S 1,000 ML IV SCH (10:56)
--- NOTE | 2024-12-05 11:20 | History & Physical Bridge Note ---
Date of Service December 05, 2024 History & Physical Bridge Note I have examined the patient, reviewed the History & Physical and in the interval since the performance of the History & Physical I have noted the following changes of clinical significance: we will be doing an open reduction internal fixation of the right ankle
[2024-12-05] MEDS: ceFAZolin 2000MG 2,000 MG/15 ML SYR IV ONE (11:35)
[2024-12-05] MEDS ORDERED: ceFAZolin 330 MG/ML 1 GM VIAL ONE (11:37)
[2024-12-05] MEDS ORDERED: SODIUM CHLORIDE 0.9% PF INJ 10 ML VIAL ONE (11:37)
--- NOTE | 2024-12-05 13:04 | Operative Report ---
PG Post Operative Report Pre & Post Diagnosis Operation Date: 12/05/24 11:30 Pre-Op Diagnosis: Right bimalleolar ankle fracture Post-Op Diagnosis: Right bimalleolar ankle fracture I identified the patient and participated in the time-out.: Yes Procedure Operation Date: 12/05/24 11:30 Actual Procedures p Right Ankle Open Reduction Internal Fixation bimalleolar ankle fracture (Right) - Charlie Hernandez DO Surgeon Charlie Hernandez DO Warehouseman Max Peralta PA-C Estimated Blood Loss 10 Findings Consistent with Post-Op Diagnosis Specimens None Description of Procedure On December 05, 2024 Imani was brought out from her hospital room to the preoperative holding area. The operative extremity identified and signed. She is given a preoperative antibiotic and a regional block. She came back to the operative room and laid on table in supine position. She is brought under general anesthesia. The right ankle was prepped and draped sterile fashion. A timeout was done. The patient and the operative extremity was prepped identified. A curvilinear incision was made over the medial malleolus. Dissection was taken down through the fascia. The fracture fragment was visualized. The fracture was cleaned out and irrigated. The fracture was then reduced. I was able to get anatomic reduction. 2 guidepins were placed perpendicular to the fracture. Fluoroscopic images showed appropriate placement of guidepins. Two 4.0 mm Synthes cannulated screws were then placed. I was able to get compression across the fracture. The guidepins were removed. Attention was turned to the lateral side. A longitudinal incision was made over the distal fibula. Dissection was taken down through the fascia. Care was taken not to disrupt the neurovascular structures. The fracture was exposed. The fracture was then reduced with a reduction clamp. A Synthes 6 hole distal fibular locking plate was used. A single locking screw was placed distally and a compression screw was placed proximally. Fluoroscopic images showed good alignment of the hardware and anatomic reduction of the fracture. The remainder of the distal locking screws were then placed. Proximal locking screws were then placed. The compression screw was then exchanged for a locking screw. The posterior fibular butterfly fragment was then drawn to the fracture with two #1 Vicryl screws that were passed around the fibula. This acted as a cerclage to pull the butterfly fragment to the fracture. All screw lengths were checked under fluoroscopy. Final fluoroscopic images showed quaker of the ankle mortise in good alignment of the fracture fragments. The surgical site was irrigated. The deep fascial layer was closed with #0 Vicryl. Skin was closed with 3-0 Vicryl and laura. She was then placed in a trauma splint. She was then extubated and transferred to a hospital bed. She was taken to the postanesthesia care unit in stable condition. She tolerated the procedure well. Max Peralta PA-C, was present for the entire procedure. He was critical for patient positioning, prepping, draping, retraction exposure, wound closure and application of sterile dressing. I attest to the content of the Intraoperative Record and any orders documented therein. Any exceptions are noted below.
--- NOTE | 2024-12-05 13:25 | Fluoroscopy Report ---
FL ankle RT 2V CLINICAL HISTORY: RT ANKLE ORIF COMPARISON STUDY: None FLUOROSCOPY TIME: 41 seconds FLUOROSCOPY IMAGES: 2 EXPOSURE DOSE: 0.85 mGy FINDINGS: Fluoroscopy was provided for internal fixation of the right ankle. IMPRESSION: Intraoperative fluoroscopy. ACT 112: Negative or not required by law. Electronically signed by: Chadd Oscar M.D. 12/05/2024 1:22 PM
[2024-12-05] MEDS ORDERED: METOCLOPRAMIDE HCL INJ 5 MG/ML 2 ML VIAL IV PRN (14:07)
[2024-12-05] MEDS ORDERED: MAGNESIUM HYDROXIDE SUSP 30 ML UDC PO PRN (14:07)
[2024-12-05] MEDS ORDERED: NALOXONE HCL 0.4 MG/1 ML VIAL/CARP IV PRN (14:07)
[2024-12-05] MEDS ORDERED: bisacodyL 10 MG SUPP PR PRN (14:07)
--- NOTE | 2024-12-05 14:07 | Anesthesiology Progress Note ---
Date of Service December 05, 2024 Anesthesia Post Procedure Vital Signs Vital Signs: Temp Pulse Pulse Resp BP BP Pulse Ox 12/05/24 14:05 93 H 12 118/77 94 12/05/24 13:55 94 H 12 119/73 94 12/05/24 13:45 36.7 C 115 H 15 117/84 96 12/05/24 13:35 99 H 13 118/74 97 12/05/24 13:25 101 H 13 121/84 99 12/05/24 13:19 36.7 C 110 H 13 109/79 97 12/05/24 10:51 37 C 72 20 116/78 95 12/05/24 07:29 36.6 C 78 16 112/73 93 12/04/24 23:09 36.5 C 70 16 129/83 98 12/04/24 21:00 36.7 C 66 17 129/81 97 12/04/24 15:59 36.3 C L 61 16 110/66 93 12/04/24 14:53 36.7 C 62 18 144/90 H 99 O2 Del Method O2 Flow Rate 12/05/24 14:05 Room Air 12/05/24 13:55 Room Air 12/05/24 13:45 Room Air 12/05/24 13:35 Oxymask 4 12/05/24 13:25 Oxymask 4 12/05/24 13:19 Oxymask 6 12/05/24 10:51 Room Air 12/05/24 07:29 Room Air 12/04/24 23:09 Room Air 12/04/24 21:00 Room Air 12/04/24 15:59 Room Air 12/04/24 14:53 Room Air Pain Intensity Right Foot: Pain Intensity: 7 Transfer of Care Handoff Completed per policy Notes Mental Status: alert / awake / arousable Patient Amnestic to Procedure: Yes Nausea / Vomiting: adequately controlled Pain: adequately controlled Airway Patency, RR, SpO2: stable & adequate BP & HR: stable & adequate Hydration State: stable & adequate Anesthetic Complications: no major complications apparent
[2024-12-05] MEDS: KETOROLAC TROMETHAMINE 15 MG/ML VIAL IV SCH (14:25)
[2024-12-05] MEDS ORDERED: Nursing to Pharmacy Communication SCH (14:45)
[2024-12-05] MEDS ORDERED: HYDROmorphone INJ 1 MG/ML SYRINGE IV PRN (15:05)
[2024-12-05] MEDS ORDERED: ceFAZolin 1000MG 1,000 MG/7.5 ML SYR IV SCH (19:30)
[2024-12-05] MEDS: DULoxetine HCL 30 MG CAP PO STA (20:20)
[2024-12-05] MEDS: DOCUSATE SODIUM 100 MG CAP PO SCH (20:20)
[2024-12-05] MEDS: ASPIRIN 81 MG ECTAB PO SCH (20:20)
[2024-12-05] MEDS: SENNA 8.6 MG TAB PO SCH (20:20)
[2024-12-06] MEDS: ACETAMINOPHEN 500 MG TAB PO PRN (05:56)
--- NOTE | 2024-12-06 06:51 | Orthopedic Progress Note ---
Date of Service December 06, 2024 Assessment & Plan (1) Fracture dislocation of right ankle: POD 1 from ORIF of right ankle. Continue pain management. Helped her get her right ankle elevated on pillows. Continue ice/elevation. Nonweight bearing on the RLE. Keep splint/dressing clean and dry. Orthopedically stable for discharge. Follow up with orthopedics in 2-3 weeks. Aspirin for dvt prophylaxis Subjective .59 year old patient POD 1 from ORIF of right ankle fx. Nerve block wore off early this morning she said, maybe around 4:30am so she's having increased pain in the ankle. She did get some pain medication. No numbness. Review of Systems All systems reviewed & are unremarkable except as noted in HPI & below. Physical Exam .alert and oriented. NAD VSS Right leg: splint/dressing clean, dry, intact. Able to move toes. NVI Results & Data Results & Data Laboratory Results . Diagnostic Findings . PG Care Time/CCT Total # of Minutes Spent Total Time Spent with Patient: Total time spent is greater than 50% in coordination of care (as documented) at patient's floor/unit and/or counseling patient: Coding Level of Care Code 63529 Post Operative Follow-Up Diagnoses Closed fracture dislocation of right ankle, initial encounter S82.891A Encounter type: initial encounter Fracture type: closed (1) Fracture dislocation of right ankle Encounter type: initial encounter Fracture type: closed Qualified Code(s): S82.891A - Other fracture of right lower leg, initial encounter for closed fracture
[2024-12-06 08:12] LABS: Hematocrit (blood only) 29.9 % (37.0-47.0); Hemoglobin 9.8 g/dl (12.0-16.0); Mean Corpuscular Hemoglobin 29.6 pg (25.0-34.0); Mean Corpuscular Hgb Conc 32.8 g/dL (32.0-36.0); Mean Corpuscular Volume 90.3 fL (80.0-100.0); Mean Platelet Volume 10.3 fL (9.4-12.4); Platelet Count 253 K/uL (130-400); RDW Coefficient of Variation 14.2 % (11.5-14.5); RDW Standard Deviation 46.3 fL (36.4-46.3); Red Blood Count 3.31 M/uL (4.20-5.40); White Blood Count 7.51 K/ul (4.8-10.8)
[2024-12-06 08:22] LABS: BUN Creatinine Ratio 18.8 (10-20); Calcium 8.3 mg/dl (8.6-10.3); Creatinine Clr Calc Pharmacy 85.4 ml/min; Potassium 3.9 mmol/L (3.5-5.1)
[2024-12-06] MEDS ORDERED: lisinopril 10 MG TAB PO SCH (09:00)
[2024-12-06] MEDS: dexAMETHasone 4 MG TAB PO SCH (09:01)
[2024-12-06] MEDS: MULTIVITAMIN TAB PO SCH (09:01)
[2024-12-06] MEDS: DULoxetine HCL 30 MG CAP PO SCH (09:03)
--- NOTE | 2024-12-06 10:05 | Hospitalist Progress Note ---
Date of Service December 06, 2024 Assessment & Plan (1) Fall: (2) Fracture dislocation of right ankle: (3) HTN (hypertension): Plan This is a 59yo F wih PMH of HTN presented to the ED after a mechanical fall and found to have a mildly displaced R trimalleolar fracture. Mechanical fall Right ankle fracture Right ankle x-ray: Mildly displaced trimalleolar fracture. POD#1 s/p Right Ankle Open Reduction Internal Fixation bimalleolar ankle fracture (Right) by Dr. Hernandez NWB RLE, follow-up with orthopedic surgery in 2 weeks Continue aspirin 81mg BID for DVT ppx Scheduled Tylenol, PRN oxycodone for pain control Per ortho for wound care, anticoagulation and activities Evaluted by PT/OT - recommended home with family support, knee walker Patient anxious about return home, inquiring about [facility] (CM made referral) -> [facility] can accept patient tomorrow Post op blood loss anemia Hgb 9.8 (pre-op hgb 11.1) Transfusion not indicated Asymptomatic, continue to monitor HTN BP on lower side this AM, 107/67. Hold lisinopril for now DVT Ppx: aspirin 81mg BID per ortho Code status: FULL PCP: JORY Blanton Dispo: admitted on med/surg I spent a total of 40 minutes coordinating, documenting, and providing care for this patient excluding time spent in the performance of separately billed services or time spent by another provider/QHP. Admission and Anticipated Discharge Date Admission Date: December 04, 2024 Supervising Physician Co-Signing Physician Notes Patient seen and examined independently. Discussed with above provider. Patient reports that her pain is well-controlled. She is working with PT and OT; reports that she has been needing 2 person assist to go to the bathroom. I discussed with her regarding going to rehab; which she agrees with. Referral sent to [facility]. I have reviewed the advanced practitioner's documentation, and I agree with, and take responsibility for the plan of care I spent a total of 20 minutes coordinating, documenting, and providing care for this patient excluding time spent in the performance of separately billed services. All of the aforementioned completed while collaborating with the assigned advanced practitioner for a full treatment plan Subjective Seen and examined in 375-2. POD#1. Endorsing pain around 0500 when nerve block wore off. Better after oral meds this AM. Hasn't gotten up with PT or nursing yet. Nervous about returning home with NWB RLE. Tolerating diet without issue. No fever, chills, chest pain shortness of breath, nausea, vomiting, abdominal pain, dysuria, diarrhea or constipation. Review of Systems Review of Systems: At least ten systems reviewed and negative except as noted in the HPI. Physical Exam Physical Exam: Gen: WD/WN, NAD, resting in bed, A&Ox3 HEENT: Normocephalic, atraumatic, conjunctivae moist, sclerae anicteric, mucous membranes moist Lung: Clear to Auscultation bilaterally, no wheezes/rales/rhonchi Heart: Regular rate, regular rhythm, no murmurs, rubs, or gallops Abdomen: Soft, NT, ND +BS x 4 Extremities: RLE ankle dressing c/d/i. No edema Skin: Warm, no rash Results & Data Results & Data Vital Signs (Past 12 Hours) Vital Signs Temp Pulse Resp BP BP Pulse Ox O2 Del Method 12/06/24 07:25 36.8 C 68 14 107/67 95 Room Air 12/06/24 03:00 36.9 C 68 16 125/82 97 Room Air 12/05/24 23:02 36.9 C 81 16 112/68 96 Room Air Laboratory Results Short CBC 12/06/24 Range/Units 07:41 WBC 7.51 (4.8-10.8) K/ul Hgb 9.8 L (12.0-16.0) g/dl Hct 29.9 L (37.0-47.0) % Plt Count 253 (130-400) K/uL BMP 12/06/24 07:41 Sodium 138 Potassium 3.9 Chloride 106 Carbon Dioxide 28 BUN 12 Creatinine 0.64 Glucose 97 Calcium 8.3 L Diagnostic Findings Ankle X-Ray 12/04/24 08:33 XR ankle RT min 3V routine CLINICAL HISTORY: fall, frx COMPARISON: None FINDINGS: Splint is present. There are acute mildly displaced fractures at the distal fibula and the medial malleolus of the distal tibia and at the posterior malleolus. There is minimal lateral subluxation of the tibiotalar joint. IMPRESSION: Mildly displaced trimalleolar fracture. ACT 112: Negative or not required by law. Electronically signed by: Chadd Oscar M.D. 12/04/2024 9:04 AM Knee X-Ray 12/04/24 08:33 XR knee RT 1 or 2V routine CLINICAL HISTORY: fall COMPARISON: None FINDINGS: No fracture or dislocation. No significant degenerative change. IMPRESSION: No fracture seen. ACT 112: Negative or not required by law. Electronically signed by: Chadd Oscar M.D. 12/04/2024 9:05 AM Ankle X-Ray 12/05/24 00:00 FL ankle RT 2V CLINICAL HISTORY: RT ANKLE ORIF COMPARISON STUDY: None FLUOROSCOPY TIME: 41 seconds FLUOROSCOPY IMAGES: 2 EXPOSURE DOSE: 0.85 mGy FINDINGS: Fluoroscopy was provided for internal fixation of the right ankle. IMPRESSION: Intraoperative fluoroscopy. ACT 112: Negative or not required by law. Electronically signed by: Chadd Oscar M.D. 12/05/2024 1:22 PM (2) Fracture dislocation of right ankle Encounter type: initial encounter Fracture type: closed Qualified Code(s): S82.891A - Other fracture of right lower leg, initial encounter for closed fracture
[2024-12-06] MEDS: ACETAMINOPHEN 500 MG TAB PO SCH (15:08)
--- NOTE | 2024-12-06 21:45 | Electrocardiogram Report ---
Test Reason : Blood Pressure : */* mmHG Vent. Rate : 78 BPM Atrial Rate : 78 BPM P-R Int : 144 ms QRS Dur : 72 ms QT Int : 384 ms P-R-T Axes : 35 40 45 degrees QTcB Int : 437 ms Normal sinus rhythm Normal ECG No previous ECGs available Confirmed by Obi Olmstead ([id number]) on 12/06/2024 9:45:03 PM Referred By: REFERRED SELF Confirmed By: Obi Olmstead
[2024-12-07 06:57] LABS: Mean Corpuscular Hemoglobin 29.9 pg (25.0-34.0); Mean Corpuscular Hgb Conc 33.3 g/dL (32.0-36.0); Mean Corpuscular Volume 89.6 fL (80.0-100.0); Mean Platelet Volume 10.4 fL (9.4-12.4); Platelet Count 263 K/uL (130-400); RDW Coefficient of Variation 13.9 % (11.5-14.5); RDW Standard Deviation 45.2 fL (36.4-46.3); Red Blood Count 3.35 M/uL (4.20-5.40); White Blood Count 8.54 K/ul (4.8-10.8)
[2024-12-07 07:08] LABS: BUN Creatinine Ratio 23.2 (10-20); Calcium 8.3 mg/dl (8.6-10.3); Creatinine Clr Calc Pharmacy 79.2 ml/min; Potassium 3.7 mmol/L (3.5-5.1)
--- NOTE | 2024-12-07 08:20 | Hospitalist Progress Note ---
Date of Service December 07, 2024 Assessment & Plan (1) Fall: (2) Fracture dislocation of right ankle: (3) HTN (hypertension): Plan This is a 59yo F wih PMH of HTN presented to the ED after a mechanical fall and found to have a mildly displaced R trimalleolar fracture. Mechanical fall Right ankle fracture Right ankle x-ray: Mildly displaced trimalleolar fracture. POD#2 s/p Right Ankle Open Reduction Internal Fixation bimalleolar ankle fracture (Right) by Dr. Hernandez NWB RLE, follow-up with orthopedic surgery in 2 weeks Continue aspirin 81mg BID for DVT ppx Scheduled Tylenol, PRN oxycodone for pain control Per ortho for wound care, anticoagulation and activities Evaluated by PT/OT - recommended home with family support, knee walker, however patient felt more comfortable with rehab. CM made referral to [facility] and patient is accepted today. Post op blood loss anemia Hgb 10.0 today. Is stable and mildly improved. Yesterday Hgb 9.8. Pre-op hgb 11.1 Transfusion not indicated Asymptomatic, continue to monitor HTN BP previously on lower normal end and home lisinopril was held Today BP: 125/78. Would plan to restart home lisinopril DVT Prophylaxis: aspirin 81mg BID per ortho Code status: FULL PCP: JORY Blanton Dispo: Planned discharge to [facility] for rehab today. Admission and Anticipated Discharge Date Admission Date: December 04, 2024 Subjective Patient seen and examined in room 379-1. Sitting up in bed eating breakfast. States doing well today and right ankle pain is controlled. Denies nausea, vomiting, abdominal pain. Reports had small BM. Denies fever/chills, diaphoresis, N/V/D, SANDOVAL, dizziness, CP, SOB, cough, sore throat, rhinorrhea, abdominal pain, paresthesias, extremity edema, rashes, urinary symptoms. Patient has been accepted at [facility] and will be discharged there today. Review of Systems Review of Systems: All systems reviewed & are unremarkable except as noted in HPI & below Physical Exam Physical Exam: General: no distress, WDWN Head: normocephalic, atraumatic Eyes: conjunctiva non-injected, anicteric ENT: normal inspection external ears, nose, mucous membranes moist Neck: supple, trachea midline Lungs: clear, no respiratory distress, no wheezing/rhonchi/rales CV: RRR, no murmur, no pretibial edema Abd: normal BS, soft, non-tender Ext: RLE: +LAI wrap and surgical dressing in place to distal leg extending to foot. Able to actively flex and extend toes. Sensation to light touch intact. Remaining extremities with normal appearance, non-tender and ROM intact. Neuro: A&O x 3, no focal deficits noted, normal affect Skin: warm, dry Results & Data Results & Data Vital Signs (Past 12 Hours) Vital Signs Resp O2 Del Method 12/07/24 07:39 14 Room Air Laboratory Results Short CBC 12/07/24 Range/Units 06:18 WBC 8.54 (4.8-10.8) K/ul Hgb 10.0 L (12.0-16.0) g/dl Hct 30.0 L (37.0-47.0) % Plt Count 263 (130-400) K/uL BMP 12/07/24 06:18 Sodium 138 Potassium 3.7 Chloride 108 H Carbon Dioxide 25 BUN 16 Creatinine 0.69 Glucose 131 H Calcium 8.3 L Diagnostic Findings Ankle X-Ray 12/04/24 08:33 XR ankle RT min 3V routine CLINICAL HISTORY: fall, frx COMPARISON: None FINDINGS: Splint is present. There are acute mildly displaced fractures at the distal fibula and the medial malleolus of the distal tibia and at the posterior malleolus. There is minimal lateral subluxation of the tibiotalar joint. IMPRESSION: Mildly displaced trimalleolar fracture. ACT 112: Negative or not required by law. Electronically signed by: Chadd Oscar M.D. 12/04/2024 9:04 AM Knee X-Ray 12/04/24 08:33 XR knee RT 1 or 2V routine CLINICAL HISTORY: fall COMPARISON: None FINDINGS: No fracture or dislocation. No significant degenerative change. IMPRESSION: No fracture seen. ACT 112: Negative or not required by law. Electronically signed by: Chadd Oscar M.D. 12/04/2024 9:05 AM Ankle X-Ray 12/05/24 00:00 FL ankle RT 2V CLINICAL HISTORY: RT ANKLE ORIF COMPARISON STUDY: None FLUOROSCOPY TIME: 41 seconds FLUOROSCOPY IMAGES: 2 EXPOSURE DOSE: 0.85 mGy FINDINGS: Fluoroscopy was provided for internal fixation of the right ankle. IMPRESSION: Intraoperative fluoroscopy. ACT 112: Negative or not required by law. Electronically signed by: Chadd Oscar M.D. 12/05/2024 1:22 PM (2) Fracture dislocation of right ankle Encounter type: initial encounter Fracture type: closed Qualified Code(s): S82.891A - Other fracture of right lower leg, initial encounter for closed fracture
[2024-12-07 08:40] VITALS: TEMP 98.1; O2SAT 96
--- NOTE | 2024-12-07 10:09 | Discharge Summary ---
Date of Service December 07, 2024 Admission HPI Per Admitting Provider 59-year-old lady with PMH of HTN presented to the ED after a fall. Patient reports she slipped on black ice in parking lot and fell, denies head trauma/loss of consciousness/palpitation or nausea or vomiting prior to fall. Patient denies fever/sore throat/cough/chest pain/pain and burning while passing urine/acute changes in bowel habits. Patient denies history of T2DM, blood clot, cancer, [place], stent placement, stroke. Patient denies tobacco use, reports occasional alcohol use up to a few times a month, denies recreational drug use. Medications reviewed with the patient at bedside. Full code Plan of care discussed with the patient and her at bedside who voiced understanding and were agreeable. Admission Exam (Per Admitting) Constitutional GENERAL: Alert and oriented x3. NAD, on RA. HEENT: No pallor, no icterus. Pupils equal, round and reactive to light. Oral mucosa moist. NECK: No JVD, no neck masses. HEART: S1 and S2 heard. Regular rate and rhythm. No murmur, no gallop. RESPIRATORY SYSTEM: Normal AP diameter. No accessory muscle use. No wheezing, no crackles. ABDOMEN: Soft, bowel sounds present, nontender, no distention. CENTRAL NERVOUS SYSTEM: No facial droop. Speech is clear. Obeys simple commands. Moves extremities. EXTREMITIES: LLE: No edema, no erythema seen.; RLE in splint, distal neurovascu lar status wnl. Discharge Data Consultations 12/04/24 11:35 ED Decision to Admit Stat 12/04/24 12:05 Consult Orthopedic Surgery Routine Procedures Performed Operation Date: 12/05/24 11:30 Actual Procedures p Right Ankle Open Reduction Internal Fixation(Right) - Charlie Hernandez DO Hospital Course (1) Fall: (2) Fracture dislocation of right ankle: (3) HTN (hypertension): Plan This is a 59yo F with PMH of HTN presented to the ED on 12/04/24 after a mechanical fall and found to have a mildly displaced R trimalleolar fracture. Had right ankle ORIF by Dr Hernandez on 12/05/24. She is non weight bearing to [facility] until further ortho follow up. Is on aspirin 81mg BID for DVT ppx and pain controlled with scheduled Tylenol, PRN oxycodone. Her home lisinopril had been on hold for lower normal BP. BP improved to 125/78 and plan to resume home lisinopril. Was evaluated by PT/OT and initially recommended home with family support, knee walker, however patient uncomfortable with care at home and requested rehab. Patient has been accepted at [facility] for rehab and discharged on 12/07/24. I spent a total of 35 minutes reviewing notes, outpatient records, labs, medication, coordinating, documenting and providing care for this patient excluding time spent in the performance of separately billed services and excluding time spent by another provider/QHP.
--- NOTE | 2024-12-07 11:13 | Orthopedic Progress Note ---
Date of Service December 07, 2024 Assessment & Plan (1) Fracture dislocation of right ankle: (2) Status post ORIF of fracture of ankle: Plan 59-year-old female POD# 2 s/p ORIF of right ankle fracture/dislocation by Dr. Hernandez on 12/05/2024. Plan: 1. DVT prophylaxis w/ ASA 81 mg twice daily. 2. Con't PT/OT as tolerated. Non-WB on RLE. Walker or knee scooter as needed to maintain WB precautions. 3. Pain relatively well-controlled continue current regimen. 4. Medical management as per the primary medicine service. 5. Continue ice/elevation. Keep splint/dressing clean and dry. 6. Orthopedically stable for discharge. Disposition - [facility] in [place], [place], later today. 7. Follow-up outpatient with Dr. Hernandez's team 2-3 weeks postop. Subjective Patient is POD# 2 s/p right ankle ORIF by Dr. Hernandez on 12/05/2024. Patient says her pain is relatively well-controlled this morning. Denies CP, SOB, N/V, R LE paresthesia. She has decided to go to [facility] in [facility] for a short-term stay. It seems that arrangements are made for her to go there later today. Review of Systems All systems reviewed & are unremarkable except as noted in HPI & below. Physical Exam GENERAL: AA&Ox3, NAD. Pleasant, affect is calm. Found sleeping, easily aroused; lying in bed and appears comfortable. Right lower extremity elevated on pillows RESPIRATORY: Normal respiratory effort with no signs of distress. CHEST/AXILLA: Chest movement symmetrical. No deformities noted. CARDIOVASCULAR: No edema noted. SKIN: [place], warm and dry. MS/EXTREMITY: Right ankle dressing, LAI wrap, and posterior short leg splint c/d/i. + Wiggles toes. NVI distally. Capillary refill <2 seconds. Upper calf soft/NT. DP pulse intact. Results & Data Results & Data Laboratory Results . Diagnostic Findings . Ankle X-Ray 12/05/24 00:00 FL ankle RT 2V CLINICAL HISTORY: RT ANKLE ORIF COMPARISON STUDY: None FLUOROSCOPY TIME: 41 seconds FLUOROSCOPY IMAGES: 2 EXPOSURE DOSE: 0.85 mGy FINDINGS: Fluoroscopy was provided for internal fixation of the right ankle. IMPRESSION: Intraoperative fluoroscopy. ACT 112: Negative or not required by law. Electronically signed by: Chadd Oscar M.D. 12/05/2024 1:22 PM PG Care Time/CCT Total # of Minutes Spent Total Time Spent with Patient: Total time spent is greater than 50% in coordination of care (as documented) at patient's floor/unit and/or counseling patient: Coding [place] [address] SUB INP/OBS CARE 11/02MIN Patient Type Established History Problem Focused Exam Expanded Problem Focused Medical Decision Making Low Complexity Diagnoses Closed fracture dislocation of right ankle, initial encounter S82.891A Encounter type: initial encounter Fracture type: closed Status post ORIF of fracture of ankle Z98.890; Z87.81 (1) Fracture dislocation of right ankle Encounter type: initial encounter Fracture type: closed Qualified Code(s): S82.891A - Other fracture of right lower leg, initial encounter for closed fracture
--- NOTE | 2024-12-07 11:18 | Discharge Summary ---
Date of Service December 07, 2024 Admission HPI Per Admitting Provider 59-year-old lady with PMH of HTN presented to the ED after a fall. Patient reports she slipped on black ice in parking lot and fell, denies head trauma/loss of consciousness/palpitation or nausea or vomiting prior to fall. Patient denies fever/sore throat/cough/chest pain/pain and burning while passing urine/acute changes in bowel habits. Patient denies history of T2DM, blood clot, cancer, [place], stent placement, stroke. Patient denies tobacco use, reports occasional alcohol use up to a few times a month, denies recreational drug use. Medications reviewed with the patient at bedside. Full code Plan of care discussed with the patient and her at bedside who voiced understanding and were agreeable. Discharge Data Consultations 12/04/24 11:35 ED Decision to Admit Stat 12/04/24 12:05 Consult Orthopedic Surgery Routine Procedures Performed Operation Date: 12/05/24 11:30 Actual Procedures p Right Ankle Open Reduction Internal Fixation(Right) - Charlie Hernandez DO
--- NOTE | 2024-12-07 11:25 | Discharge Summary ---
Date of Service December 07, 2024 Admission HPI Per Admitting Provider 59-year-old lady with PMH of HTN presented to the ED after a fall. Patient reports she slipped on black ice in parking lot and fell, denies head trauma/loss of consciousness/palpitation or nausea or vomiting prior to fall. Patient denies fever/sore throat/cough/chest pain/pain and burning while passing urine/acute changes in bowel habits. Patient denies history of T2DM, blood clot, cancer, [place], stent placement, stroke. Patient denies tobacco use, reports occasional alcohol use up to a few times a month, denies recreational drug use. Medications reviewed with the patient at bedside. Full code Plan of care discussed with the patient and her at bedside who voiced understanding and were agreeable. Admission Exam Per Admitting Provider GENERAL: Alert and oriented x3. NAD, on RA. HEENT: No pallor, no icterus. Pupils equal, round and reactive to light. Oral mucosa moist. NECK: No JVD, no neck masses. HEART: S1 and S2 heard. Regular rate and rhythm. No murmur, no gallop. RESPIRATORY SYSTEM: Normal AP diameter. No accessory muscle use. No wheezing, no crackles. ABDOMEN: Soft, bowel sounds present, nontender, no distention. CENTRAL NERVOUS SYSTEM: No facial droop. Speech is clear. Obeys simple commands. Moves extremities. EXTREMITIES: LLE: No edema, no erythema seen.; RLE in splint, distal neurovascular status wnl. Principal Diagnosis Right ankle trimalleolar fracture Discharge Exam General: no distress, WDWN Head: normocephalic, atraumatic Eyes: conjunctiva non-injected, anicteric ENT: normal inspection external ears, nose, mucous membranes moist Neck: supple, trachea midline Lungs: clear, no respiratory distress, no wheezing/rhonchi/rales CV: RRR, no murmur, no pretibial edema Abd: normal BS, soft, non-tender Ext: RLE: +LAI wrap and surgical dressing in place to distal leg extending to foot. Able to actively flex and extend toes. Sensation to light touch intact. Remaining extremities with normal appearance, non-tender and ROM intact. Neuro: A&O x 3, no focal deficits noted, normal affect Skin: warm, dry Discharge Data Allergies Allergy/AdvReac Type Severity Reaction Status Date / Time amoxicillin Allergy Rash Verified 12/04/24 09:08 Penicillins Allergy Rash Verified 12/04/24 09:08 Consultations 12/04/24 11:35 ED Decision to Admit Stat 12/04/24 12:05 Consult Orthopedic Surgery Routine Procedures Performed Operation Date: 12/05/24 11:30 Actual Procedures p Right Ankle Open Reduction Internal Fixation(Right) - Charlie Hernandez, Ordered Studies 12/05/24 FL ankle RT 2V Routine 12/05/24 11:08 US - OR guided needle placemen Stat Hospital Course (1) Fall: (2) Fracture dislocation of right ankle: (3) HTN (hypertension): Plan This is a 59yo F with PMH of HTN presented to the ED on 12/04/24 after a mechanical fall and found to have a mildly displaced R trimalleolar fracture. Had right ankle ORIF by Dr Hernandez on 12/05/24. She is non weight bearing to RLE until further ortho follow up. Is on aspirin 81mg BID for DVT ppx and pain controlled with scheduled Tylenol, PRN oxycodone. Her home lisinopril had been on hold for lower normal BP. BP improved to 125/78 and plan to resume home lisinopril. Was evaluated by PT/OT and initially recommended home with family support, knee walker, however patient uncomfortable with care at home and requested rehab. Patient has been accepted at [facility] for rehab and discharged on 12/07/24. I spent a total of 35 minutes reviewing notes, outpatient records, labs, medication, coordinating, documenting and providing care for this patient excluding time spent in the performance of separately billed services and excluding time spent by another provider/QHP. Total Time Total Time Spent Total Time Spent (In Minutes): 35 Discharge Plan Discharge Items Patient Disposition: Transfer Inpatient Rehab Fac Reason For Visit: FALL, ANKLE FRACTURE Discharge Diagnosis: Right ankle fracture. S/P surgical repair. Activity: As commented below Activity Comment: Nonweight bearing right leg for 6 weeks Non-emergency contact: Primary Care Provider Call non-emergency contact if: your symptoms worsen, your pain is not controlled, your temperature is above 101.5, your wound has increased redness and your wound has increased drainage Follow-up/Referrals: Sugey Blanton PA-C [Primary Care Provider] - (The office will call you for a follow up appointment.) Diet: Regular Addtl Attending Provider Instructions: You were admitted to the hospital after fall resulting in right ankle fracture. You had surgical repair by Dr. Hernandez. You are being discharged to [facility]. ORTHOPEDIC INSTRUCTIONS Activity Recommendations: Nonweightbearing on the right ankle for 6 weeks. Medications: Take narcotic pain medications as needed. Take aspirin 81 mg twice a day for 6 weeks after surgery to prevent blood clots. Take the cefadroxil 500 mg twice a day for 10 days after surgery to help prevent infection. Dressing Care: Leave the trauma splint in place until follow-up. Showering: She may shower but do not get the trauma splint wet. Either leave it hang out of the bathtub or cover it with a bag. Diet: You may resume your previous diet. Things To Watch For: 1. Drainage from the incision site that occurs more than one week after your surgery. 2. Increased redness at the incision site. 3. Fever above 102 degrees Fahrenheit. 4. Unusual chest pain or shortness of breath. 5. Call [facility] at with any of the above problems Follow-Up Visit: Follow-up with Dr. Hernandez's office 2-3 weeks after your day of surgery. We will remove your laura and answer any questions. Please call the office to set up an appointment for a time that works for you. MEDICATION CHANGES: Aspirin 81 mg 1 tab twice daily for 42 days for prevention of blood clot Docusate sodium 100mg 1 tab twice daily for 7 days for constipation Miralax 1 capful daily as needed for constipation oxycodone 5mg every 8 hours as needed for pain Tylenol 1000mg every 8 hours for next 4 days for pain control CONTINUE HOME MEDICATION: Lisinopril 10mg once daily Duloxetine 30mg daily PENDING TEST RESULTS: None pending Seek medical attention if you have: * temperature above 101 * chest pain or trouble breathing * abdominal pain, nausea, vomiting * diarrhea, dark stools or bloody stools * any unanswered questions or concerns Call [phone] if symptoms are severe. It was a pleasure taking care of you. Call if you have any questions or problems. You can reach a [facility] hospitalist on duty at [facility] 24 hours a day by calling [phone]. Take care of yourself. Pending Studies at Discharge: No Stand-Alone Forms: My [facility] Skilled Items Patient informed of condition?: Yes DNR: No Discharge Level of Care: Acute rehab Communicable Disease: No Discharge Prognosis: Stable Lines: None Urinary Catheter: No Medications and DC Order Prescriptions: New acetaminophen [Tylenol Extra Strength] 500 mg Tablet 1,000 mg PO Q8H Qty: 14 0RF aspirin 81 mg Tablet,Delayed Release (Dr/Ec) 81 mg PO BID 40 Days Qty: 80 0RF oxycodone 5 mg Tablet 5 mg PO Q8H PRN (Reason: pain) Qty: 5 0RF docusate sodium 100 mg Capsule 100 mg PO BID 7 Days Qty: 14 0RF polyethylene glycol 3350 [Miralax] 17 gram Powder In Packet 17 g PO DAILY PRN (Reason: constipation) 7 Days Qty: 14 0RF cefadroxil 500 mg capsule 500 mg PO BID 10 Days Qty: 20 0RF Continued lisinopril 10 mg tablet 10 mg PO DAILY duloxetine 30 mg capsule,delayed release(DR/EC) 30 mg PO DAILY Discharge Orders: Discharge Order (Routine); Ordered 12/07/24 Ordered By: Paris Heath Admission Data Admit Date/Time: 12/04/24 12:06 Attending Provider: Andrew Enciso Admit Provider: Emily Bliss Primary Care Provider: Sugey Blanton Other Providers: Emily Bliss; Sergio Glaser; [facility] Supervising Physician Co-Signing Physician Notes Patient seen and examined independently. Discussed with above provider. Patient reports that she would benefit from rehab; he is looking forward to going there. Orthopedic instructions provided; nonweightbearing for 6 weeks Aspirin twice daily for DVT prophylaxis I have reviewed the advanced practitioner's documentation, and I agree with, and take responsibility for the plan of care I spent a total of 20 minutes coordinating, documenting, and providing care for this patient excluding time spent in the performance of separately billed services. All of the aforementioned completed while collaborating with the assigned advanced practitioner for a full treatment plan
[2024-12-07 12:03] VITALS: RESP 18
[2024-12-07 15:48] VITALS: BP 117/74; PULSE 66
== END 2024-12-07 16:14 | DRG 494 ==
LOC: ED 08:25 → SUATTDRO 12:06 → 3N 12:06 → INTOOBSV 12:06 → 3N 13:58